=== PATIENT | female | born 1970 | race Caucasian/White ===

== ENCOUNTER 2019-07-05 08:58 | Outpatient (CLI) | payer OTHER ==
--- NOTE | 2019-07-05 09:53 | CT ---
CT OF THE CHEST, ABDOMEN AND PELVIS WITH IV CONTRAST INDICATION: Recent diagnosis of left-sided breast cancer COMPARISON: None FINDINGS: CHEST: Lungs: No suspicious pulmonary nodule or pleural effusion is identified. Pleural space: No effusion. Mediastinum: No pathologically enlarged lymph nodes are evident. Axilla: There is an enlarged left axillary lymph node with an adjacent biopsy clip measuring 1.5 cm. There is a 6 mm left subpectoral lymph node on image 19 of series 2. No additional enlarged lymph nodes are seen within the left axilla or left supraclavicular regions. The right axilla is within nor mal limits. There is a surgical clip within the lateral aspect of the left breast. ABDOMEN: Liver: There are numerous hypodense liver lesions involving the liver suspicious for cysts. One of th e largest is seen within the posterior right hepatic lobe measuring 3.9 cm. There is a bilobed cyst involving the inferior aspect of the right hepatic lobe on image 68 of series 2 measuring 5.2 cm. No suspicious hepatic lesion is identified. Gallbladder: Normal appearing. Pancreas: Normal. Adrenal glands: Normal. Spleen: Normal. Kidneys and ureters: There is a 2 mm nonobstructing calculus within the midpole of the left kidney. T here is a 2 mm calculus within superior pole the right kidney. There is a 2 mm calculus within the midpole of the right kidney. There is a 1 to 2 mm calculus within the inferior pole of the right kidn ey. No hydronephrosis is evident. Vasculature: Normal. Lymph nodes:No lymphadenopathy. Free fluid in abdomen:No free fluid is evident. PELVIS: Small and large bowel: Normal Appendix:Normal Bladder: Normal. Rectal and perirectal soft tissues:Normal. Reproductive structures: Normal. Free fluid in pelvis: No free fluid is evident. Lymphadenopathy pelvis: No lymphadenopathy is evident. Osseous structures: No acute osseous abnormality. No destructive osteolytic or osteoblastic lesion i s identified. There is scattered degenerative and osteoarthritic changes. Soft tissues:There is skin thickening involving the left breast. IMPRESSION: 1. Patient's known left breast cancer is not well depicted on the current CT examination. There is a biopsy clip within the lateral aspect the left breast. There is skin thickening involving the left breast which may reflect sequela of therapy or inflammatory breast cancer. There are enlarged lymph n odes within the left axilla suspicious for malignant lymphadenopathy. 2. No evidence to suggest distant metastatic disease within the lungs, abdomen, pelvis and osseous st ructures. 3. Numerous hepatic cysts. 4. Bilateral nephrolithiasis
--- NOTE | 2019-07-05 13:22 | NM ---
EXAM: NM Bone Scan STANDARD PROVIDED CLINICAL HISTORY: Malignant neoplasm of upper inner quadrant of left female breast. COMPARISON: None FINDINGS: Anterior and posterior whole body images are obtained. There is increased uptake in the shoulders pita aterally in a degenerative pattern. A few minimal areas of asymmetric uptake are seen in the thoracic and lower lumbar spine also likely on a degenerative basis. There is a focus of increased ac tivity seen within the upper sternum, but this is likely at the sternomanubrial junction and may be related to degenerative change. No definite abnormal areas of increased uptake or radiotracer seen th roughout the axial or appendicular skeleton to suggest scintigraphic evidence of metastatic disease. Expected activity is seen in the kidneys bilaterally as well as in the urinary bladder. IMPRESSION: Scattered degenerative changes without findings to suggest osseous metastatic disease.
[2019-07-05] MEDS ORDERED: Iopamidol 370 76% 100 ML VIAL ONE (15:14)
== END 2019-07-05 08:59 | disposition home or self-care (01) ==
LOC: CT 08:58
PROVIDERS: ATTEND Internal Medicine Hematology & Oncology
DX: C50.212 Malignant neoplasm of upper-inner quadrant of left female breast (principal); N20.0 Calculus of kidney; K76.89 Other specified diseases of liver
CPT/HCPCS: 71260; 74177; 78306; A9503; Q9967

== ENCOUNTER 2019-07-06 06:08 | Day surgery (SDC) | payer OTHER ==
[2019-07-05 10:31] VITALS: BMI 28.3
[2019-07-06] MEDS ORDERED: Lidocaine 2% Jelly 5 ML TUBE ONE (06:46)
[2019-07-06] MEDS ORDERED: Lidocaine 2% PF 5 ML VIAL ONE (06:46)
[2019-07-06] MEDS ORDERED: Bupivacaine 0.25% HCL 30 ML VIAL ONE (06:50)
[2019-07-06] MEDS ORDERED: Lidocaine 0.5%/Epinephrine 1:200,000 50 ml Vial ONE (06:50)
[2019-07-06] MEDS ORDERED: Fentanyl 100 MCG/2 ML VIAL ONE (06:51)
[2019-07-06] MEDS ORDERED: Propofol 500 MG/50 ML VIAL ONE (06:57)
[2019-07-06] MEDS ORDERED: Midazolam HCl 2 mg/2 ml Vial ONE (07:26)
[2019-07-06] MEDS ORDERED: Ketorolac Tromethamine 30 MG/ML VIAL ONE (08:31)
[2019-07-06] MEDS ORDERED: Morphine 2 MG/ML SYRINGE ONE (09:03)
--- NOTE | 2019-07-06 10:17 | RAD ---
CHEST 1 VIEW: Date: 07/06/2019 HISTORY: Postop MediPort placement. COMPARISON: Adult Daycare Coordinator film from chest, abdomen, and pelvis CT scan dated 07/05/2019. FINDINGS: Right central line and injection port has been placed. No pneumothorax or pleural effusion. Heart siz e is normal. IMPRESSION: Right central line and injection port without pneumothorax or pleural effusion. POS: OFF
[2019-07-06] MEDS ORDERED: PROPOFOL 200 MG/20 ML VIAL ONE (11:55)
--- NOTE | 2019-07-07 12:54 | OP ---
DATE OF PROCEDURE: 07/06/2019 PREOPERATIVE DIAGNOSIS: Left breast cancer, locally advanced with metastatic disease to the left axilla. POSTOPERATIVE DIAGNOSIS: Left breast cancer, locally advanced with metastatic disease to the left axilla. PROCEDURES PERFORMED: Right IJ central line with subcutaneous port (MediPort). ANESTHESIA: General. ESTIMATED BLOOD LOSS: Minimal. COMPLICATIONS: None. FINDINGS: Tip of the catheter at the atriocaval junction. DESCRIPTION OF PROCEDURE: The patient was taken to the operating room and laid supine on the operating room table. After general anesthetic was obtained, bilateral neck and chest were prepped and draped in a sterile fashion. Local anesthetic infiltrated over the right internal jugular vein. Internal jugular vein was cannulated using a 22-gauge finder needle followed by a Seldinger needle. Wire was passed into the superior vena cava under fluoro guidance. A small dominique was made at the wire entrance site. A separate 3 cm incision was made in the right upper chest. Subcutaneous pocket was made below the lower incision. Tubing for the MediPort tunneled from the inferior to the superior incision. An introducer sheath was placed over the wire into the superior vena cava under fluoro guidance. The dilator and wire were removed. The end of the catheter was sewed into the sheath. The sheath was peeled away. The tip of the catheter was at the atriocaval junction. MediPort tubing was cut to fit the MediPort at the lower incision, connected to the MediPort. The MediPort is sewn to the chest wall in the subcutaneous pocket using Prolene. MediPort flushed and landen blood without difficulty, it was flushed with a heparin flush. The wounds were irrigated and closed using 3-0 Vicryl, 4-0 Monocryl, and Dermabond. The patient was sent to Recovery in stable condition. All instrument counts, needle counts, and lap counts were correct. Job ID: [id number]
== END 2019-07-06 10:35 | disposition home or self-care (01) ==
LOC: SDC 06:08
PROVIDERS: ATTEND Surgery
PROC: 02HV33Z Insertion of Infusion Device into Superior Vena Cava, Percutaneous Approach (ICD-10-PCS; principal; 2019-07-06)
DX: C50.412 Malignant neoplasm of upper-outer quadrant of left female breast (principal); C77.3 Secondary and unspecified malignant neoplasm of axilla and upper limb lymph nodes; I10 Essential (primary) hypertension; Z17.0 Estrogen receptor positive status [ER+]; Z79.899 Other long term (current) drug therapy
CPT/HCPCS: 71045; C1788; J0690; J1642; J1885; J2001; J2250; J2270; J2704; J3010; S0020

== ENCOUNTER 2019-10-26 06:20 | Outpatient (CLI) | payer OTHER ==
[2019-10-26 11:30] LABS: #Eosinphils 0.1 thou/uL (0.0-0.7); #Lymphocytes 1.2 thou/uL (1.20-3.40); #Monocytes 0.8 thou/uL (0.11-0.59); %Basophils 0.5 % (0.0-1.0); %Eosinophils 1.2 % (0.0-10.0); %Monocytes 13.5 % (0.0-10.0); %Neutrophils 65.9 % (42.0-75.0); Hemoglobin 10.5 g/dL (12.0-16.0); Mean Corpuscular Hemoglobin 32.4 pg (27.0-31.0); Mean Platelet Volume 8.5 fL (7.4-10.4); Platelet Count 266 thou/uL (130-400); RBC Distribution Width 16.5 % (11.5-14.5); Red Blood Cell (RBC) Count 3.24 mill/uL (4.20-5.40); White Blood Cell (WBC) Count 6.1 thou/uL (4.8-10.8)
[2019-10-26 11:58] LABS: Anion Gap 13 mmol/L (10-20); BUN (Urea Nitrogen) 14 mg/dL (7.0-18.7); Calc. Creatinine Clearance 0 mL/min (70-130); Calcium 9.3 mg/dL (7.8-10.44); Carbon Dioxide 26 mmol/L (22-29); Chloride 108 mmol/L (98-107); Estimated GFR-MDRD Greater than 90; Glucose 90 mg/dL (70-105); Potassium 3.8 mmol/L (3.5-5.1); Sodium 143 mmol/L (136-145)
[2019-10-26 17:16] LABS: SARS-CoV-2 MS2 Positive; SARS-CoV-2 N Gene Negative; SARS-CoV-2 S Gene Negative; SARS-CoV-2 orf1ab Negative
== END 2019-10-26 06:21 | disposition home or self-care (01) ==
LOC: LABBT 06:20
PROVIDERS: ATTEND Surgery
DX: Z01.812 Encounter for preprocedural laboratory examination (principal); Z11.59 Encounter for screening for other viral diseases; C50.919 Malignant neoplasm of unspecified site of unspecified female breast
CPT/HCPCS: 80048; 85025; 87635; U0003

== ENCOUNTER 2019-10-31 09:30 | Observation (INO) | payer OTHER ==
[2019-10-26 10:09] VITALS: BMI 28.6
[2019-10-31] MEDS ORDERED: Ondansetron PF 4 MG/2 ML Vial ONE (09:51)
[2019-10-31] MEDS ORDERED: PHENYLEPHRINE-NS 100 MCG/ML 10 ML SYRINGE ONE (09:51)
[2019-10-31] MEDS ORDERED: Rocuronium Bromide 10 MG/ML (10ML VIAL) ONE (09:51)
[2019-10-31] MEDS ORDERED: PROPOFOL 200 MG/20 ML VIAL ONE (09:51)
[2019-10-31] MEDS ORDERED: Dexamethasone 20 MG/5 ML VIAL ONE (09:51)
[2019-10-31] MEDS ORDERED: Lidocaine 1% PF 5 ML VIAL ONE (09:51)
[2019-10-31] MEDS ORDERED: Methylene Blue 50 MG/10 ML AMPUL ONE (10:38)
[2019-10-31] MEDS ORDERED: Gentamicin 80 MG/2 ML VIAL ONE ×2 (10:38→15:55)
[2019-10-31] MEDS ORDERED: Bupivacaine 0.25% HCL 30 ML VIAL ONE (10:38)
[2019-10-31] MEDS ORDERED: EPINEPHrine 1 MG/ML AMP ONE (10:38)
[2019-10-31] MEDS ORDERED: Sodium Chloride 0.9% 10 ML ONE ×2 (11:55→15:55)
--- NOTE | 2019-10-31 13:34 | NM ---
Lymphoscintigraphy left breast HISTORY: Left breast cancer. FINDINGS: After explaining the procedure and answering all questions, the skin around the periareolar aspect left breast was cleansed. Sterile technique was used to carefully injected total volume of 1 cc liquid containing 360 uCi techn etium 99m filtered sulfur colloid in 4 equal aliquots into the skin at the 12:00, 3:00, 6:00, and 9:00 periareolar positions of the left breast. Injection sites were massaged by the patient and imaging performed. At 1 hour and then at 2 hours, a focus of increased radiotracer uptake is present at the superior lat eral aspect of the left breast. Skin overlying the lymph node was marked and patient was sent to day surgery in good condition. IMPRESSION : Technically successful lymphoscintigraphy left breast revealing axillary tail sentinel lymph node.
[2019-10-31] MEDS ORDERED: Heparin 5,000 UNITS/ML VIAL ONE (14:08)
[2019-10-31] MEDS ORDERED: Fentanyl 100 MCG/2 ML VIAL ONE ×3 (14:24→18:19)
[2019-10-31] MEDS ORDERED: Midazolam HCl 2 mg/2 ml Vial ONE (14:24)
[2019-10-31] MEDS ORDERED: Promethazine HCl 25 MG/ML VIAL IM PRN ×2 (17:14→19:19)
[2019-10-31] MEDS ORDERED: HYDROmorphone 2 MG/ML VIAL SLOW IVP PRN (17:14)
[2019-10-31] MEDS ORDERED: Meperidine HCl/PF 25 MG/ML VIAL SLOW IVP PRN (17:14)
[2019-10-31] MEDS ORDERED: Promethazine HCl 25 MG/ML VIAL SLOW IVP PRN (17:14)
[2019-10-31] MEDS ORDERED: Promethazine HCl 25 MG/ML VIAL ONE (18:09)
[2019-10-31] MEDS ORDERED: Fentanyl 100 MCG/2 ML VIAL SLOW IVP PRN ×2 (19:19)
[2019-10-31] MEDS ORDERED: hydrALAZINE 20 MG/ML VIAL SLOW IVP PRN (19:19)
[2019-10-31] MEDS ORDERED: Dextrose 5% in Water 1,000 ML IV PRN (19:19)
[2019-10-31] MEDS ORDERED: HYDROcodone/Acetaminophen 7.5/325 mg Tablet PO PRN (19:19)
[2019-10-31] MEDS ORDERED: Dextrose 50% Abboject 50 ML SYRINGE SLOW IVP PRN (19:19)
[2019-10-31] MEDS ORDERED: Ondansetron PF 4 MG/2 ML Vial IVP PRN (19:19)
[2019-10-31] MEDS: Sodium Chloride 0.9% 1,000 ML IV SCH (20:50)
[2019-10-31] MEDS: Famotidine 20 MG TAB PO SCH (20:50)
[2019-10-31] MEDS: HYDROcodone/Acetaminophen 7.5/325 mg Tablet PO PRN (21:10)
[2019-10-31] MEDS: Fluticasone Propionate Nasal Spray 16 gm Bottle NASAL SCH (22:26)
--- NOTE | 2019-11-01 01:29 | OP ---
DATE OF PROCEDURE: 10/31/2019 PREOPERATIVE DIAGNOSIS: Left breast cancer. POSTOPERATIVE DIAGNOSIS: Left breast cancer. PROCEDURE PERFORMED: 1. Placement of AlloDerm for breast reconstruction (16 x 20) (43528). 2. Placement of left tissue beam racker for immediate breast reconstruction . DESCRIPTION OF PROCEDURE: Following induction of adequate anesthesia, the patient was prepped and draped in the usual sterile fashion in supine position. The patient underwent a left mastectomy with left axillary node dissection. Please see Dr. Collier's note for further details. At the conclusion of his procedure, the pocket was copiously irrigated and inspected for meticulous hemostasis. It was irrigated with hypochlorite solution followed by dilute antibiotic solution and dilute antibiotic and Betadine solution. Antibiotic beads were placed. A prepectoral reconstruction was elected. Artoura smooth tissue beam racker was placed into position and sutured with 2-0 Prolene suture at its inferior and medial suture tabs. AlloDerm was placed anterior to the tissue beam racker and secured with a series of 2-0 PDS sutures around the beam racker, as well as at the inframammary crease. The pocket was inspected for meticulous hemostasis prior to closure. Closure was performed along the inframammary crease incision using 3-0 PDS suture and 3-0 Monocryl suture after two #10 drains were placed, one in the axilla and one at the inframammary crease. Job ID: [id number] MTDD
[2019-11-01] MEDS: HYDROcodone/Acetaminophen 7.5/325 mg Tablet PO PRN ×2 (06:46→13:19)
[2019-11-01] MEDS: Famotidine 20 MG TAB PO SCH ×2 (08:32→20:34)
[2019-11-01] MEDS: Fluticasone Propionate Nasal Spray 16 gm Bottle NASAL SCH ×4 (08:32→20:36)
[2019-11-01] MEDS: Sodium Chloride 0.9% 1,000 ML IV SCH (08:38)
--- NOTE | 2019-11-01 10:31 | PDOC.GSPN ---
Surgery Progress Note: Subj - Subjective Narrative: c/o pain, not ambulating Surgery Progress Note: Obj - Vital signs Vital signs: Vital Signs - Most Recent Temp Pulse Resp BP Pulse Ox 97.9 F 54 L 18 117/67 96 11/01/19 07:30 11/01/19 07:30 11/01/19 07:30 11/01/19 07:30 11/01/19 08:00 - Physical Exam General: no distress Wound: dressing clean,dry,intact Surgery Progress Note: A/P - Problem (1) Breast cancer Current Visit: Yes Status: Acute - Plan Plan: POD 1 -Needs to ambulate more. -home tomorrow
[2019-11-01] MEDS ORDERED: Cephalexin 250 MG CAP PO SCH (10:45)
--- NOTE | 2019-11-01 13:57 | OP ---
DATE OF PROCEDURE: 10/31/2019 PREOPERATIVE DIAGNOSIS: Locally invasive left breast cancer with clinical stage III disease, (preoperatively treated with neoadjuvant chemotherapy). POSTOPERATIVE DIAGNOSIS: Locally invasive left breast cancer with clinical stage III disease, (preoperatively treated with neoadjuvant chemotherapy). PROCEDURES PERFORMED: 1. Left nipple-sparing mastectomy. 2. Left axillary dissection. 3. Removal of tunneled central line with subcutaneous port. ANESTHESIA: General. ESTIMATED BLOOD LOSS: Minimal. COMPLICATIONS: None. FINDINGS: No significant sentinel node, Neoprobe uptake in the left axilla. Decision is made to perform level 1 and 2 axillary dissection. DESCRIPTION OF PROCEDURE: The patient was taken to the operating room and laid supine on the operating room table. After general anesthetic was obtained, the methylene blue dye was infiltrated in the breast tissue just to the right of the nipple, massaged for 5 minutes. The left chest, breast, axilla, and arm were prepped and draped in a sterile fashion. The right chest in the area of previous MediPort was prepped and draped in a sterile fashion too. An incision was made just above the inferior mammary crease. Flaps were raised posterior to the breast along the pectoralis fascia. The fascia was removed with the breast to the level of sternum medially, clavicle superiorly, latissimus dorsi laterally. Flaps were raised then in the subcutaneous space through the nipple in the area where the nipple was brought down. A Prolene was used to anju on the breast where the nipple corresponded to. The breast was removed after taking the tail out. It was marked with 2 short superior, 1 long lateral, sent to Path for final diagnosis. An incision was made high in the left axilla in order to preserve the blood supply to the long flaps. Using the Neoprobe, there was no increased uptake obtained in the left axilla, so decision was made to perform level 1 and 2 axillary dissection. The clavipectoral fascia was entered. The axillary vein was found, the unnamed vein was taken at its takeoff from the axillary vein. Dissection was taken down to thoracodorsal nerve, which was excluded from the dissection. The long thoracic was found as well medially and excluded from the dissection. All level 1 and 2 axillary fatty nic tissue was removed and sent to Path for final diagnosis. There was 1 scarred area of a few lymph nodes, that was consistent with previous biopsy positive lymph node. A #10 drain was brought out and sewn in place using silk. This incision was closed using 3-0 Vicryl, 4-0 Monocryl, and Dermabond. The procedure was turned over to Dr. Cedeno for placement of a tissue facility environmental technician. The previous incision over the right MediPort was opened and the MediPort was removed. This wound was irrigated and closed using 3-0 Vicryl, 4-0 Monocryl, and Dermabond. The patient was ultimately returned to Recovery in stable condition. All instrument counts, needle counts, and lap counts were correct. Job ID: [id number]
[2019-11-01] MEDS: Cephalexin 250 MG CAP PO SCH ×2 (18:00→23:28)
[2019-11-01] MEDS: Naproxen 500 MG TAB PO SCH (20:33)
[2019-11-02] MEDS: Cephalexin 250 MG CAP PO SCH ×2 (04:56→12:00)
[2019-11-02] MEDS: HYDROcodone/Acetaminophen 7.5/325 mg Tablet PO PRN ×2 (05:00→12:01)
[2019-11-02] MEDS: Naproxen 500 MG TAB PO SCH (08:11)
[2019-11-02] MEDS: Famotidine 20 MG TAB PO SCH (08:11)
[2019-11-02] MEDS: Fluticasone Propionate Nasal Spray 16 gm Bottle NASAL SCH ×2 (08:12)
[2019-11-02 12:14] VITALS: TEMP 97.9
[2019-11-02 15:30] VITALS: BP 117/72
[2019-11-02] MEDS ORDERED: Gabapentin 300 MG CAP PO SCH (18:00)
--- NOTE | 2019-11-03 05:22 | DIS ---
DATE OF ADMISSION: 10/31/2019 DATE OF DISCHARGE: 11/02/2019 ADMITTING DIAGNOSIS: Left breast cancer. DISCHARGE DIAGNOSIS: Left breast cancer. PROCEDURES PERFORMED: Simple mastectomy, axillary dissection and reconstruction by Amira/Pao. CONDITION ON DISCHARGE: Improved. STAFF: Jermaine Collier MD HOSPITAL COURSE: On postop day 2, the patient is doing well. Her pain is controlled. Prescriptions for hydrocodone and Zofran sent over to [facility] in [place]. She was instructed on drain care and reach to recovery exercises. She will follow up with Dr. Cedeno on of this week. She will follow up with me on Thursday of next week. Job ID: [id number]
== END 2019-11-02 16:05 | disposition home or self-care (01) ==
LOC: SDC 09:30 → SURG B 16:35 → SDC 19:20
PROVIDERS: ADMIT Surgery; ATTEND Surgery
PROC: 0HBU0ZZ Excision of Left Breast, Open Approach (ICD-10-PCS; principal; 2019-10-31)
PROC: 07T60ZZ Resection of Left Axillary Lymphatic, Open Approach (ICD-10-PCS; 2019-10-31)
PROC: 0JPT0WZ Removal of Totally Implantable Vascular Access Device from Trunk Subcutaneous Tissue and Fascia, Open Approach (ICD-10-PCS; 2019-10-31)
PROC: 0HHU0NZ Insertion of Tissue Expander into Left Breast, Open Approach (ICD-10-PCS; 2019-10-31)
PROC: 0HUU0KZ Supplement Left Breast with Nonautologous Tissue Substitute, Open Approach (ICD-10-PCS; 2019-10-31)
DX: C50.412 Malignant neoplasm of upper-outer quadrant of left female breast (principal); I10 Essential (primary) hypertension; Z17.0 Estrogen receptor positive status [ER+]; Z79.51 Long term (current) use of inhaled steroids
CPT/HCPCS: 78195; 88307; 88309; 88342; 96361; 96374; A9541; C1713; G0378; J0171; J0690; J1100; J1580; J1644; J2001; J2250; J2405; J2550; J2704; J3010; J3370; Q4116; Q9968; S0020

== ENCOUNTER 2020-03-14 07:37 | Outpatient (CLI) | payer OTHER ==
[2020-03-15 11:52] LABS: SARS-CoV-2 MS2 Positive; SARS-CoV-2 N Gene Negative; SARS-CoV-2 S Gene Negative; SARS-CoV-2 by NAA Not Detected (NotDetected); SARS-CoV-2 orf1ab Negative
== END 2020-03-14 07:38 | disposition home or self-care (01) ==
LOC: LABBT 07:37
PROVIDERS: ATTEND Plastic Surgery
DX: Z20.828 Contact with and (suspected) exposure to other viral communicable diseases (principal); Z85.3 Personal history of malignant neoplasm of breast
CPT/HCPCS: 87635; U0003

== ENCOUNTER 2020-03-19 07:32 | Day surgery (SDC) | payer OTHER ==
[2020-03-14 11:04] VITALS: BMI 27.0
[2020-03-19] MEDS ORDERED: Heparin 5,000 UNITS/ML VIAL ONE (07:47)
[2020-03-19] MEDS ORDERED: EPINEPHrine 1 MG/ML AMP ONE (09:39)
[2020-03-19] MEDS ORDERED: Sodium Chloride 0.9% 20 ML ONE (09:39)
[2020-03-19] MEDS ORDERED: Gentamicin 80 MG/2 ML VIAL ONE (09:39)
[2020-03-19] MEDS ORDERED: Bupivacaine 0.25% HCL 30 ML VIAL ONE (09:39)
[2020-03-19] MEDS ORDERED: EPHEDRINE 25 MG/5 ML SYRINGE ONE (10:22)
[2020-03-19] MEDS ORDERED: Lidocaine 1% PF 5 ML VIAL ONE (10:22)
[2020-03-19] MEDS ORDERED: Ondansetron PF 4 MG/2 ML Vial ONE (10:22)
[2020-03-19] MEDS ORDERED: PHENYLEPHRINE-NS 100 MCG/ML 10 ML SYRINGE ONE (10:22)
[2020-03-19] MEDS ORDERED: Dexamethasone 20 MG/5 ML VIAL ONE (10:22)
[2020-03-19] MEDS ORDERED: PROPOFOL 200 MG/20 ML VIAL ONE (10:22)
[2020-03-19] MEDS ORDERED: Midazolam HCl 2 mg/2 ml Vial ONE (10:26)
[2020-03-19] MEDS ORDERED: Fentanyl 100 MCG/2 ML VIAL ONE ×2 (10:36→12:56)
[2020-03-19] MEDS ORDERED: HYDROcodone/Acetaminophen 5/325 mg Tablet ONE (14:04)
--- NOTE | 2020-03-20 12:50 | OP ---
DATE OF PROCEDURE: 03/19/2020 PROCEDURES PERFORMED: 1. Exchange of left tissue bricklayer helper for permanent breast prosthesis including capsular work (39349.LT). 2. Fat grafting of the left breast (30 mL) (1.769). OPERATIVE FINDINGS: Left breast implant [place] reference [id number], serial #[id number]. 270 mL smooth round implant. DESCRIPTION OF PROCEDURE: Following induction of adequate anesthesia, the patient was prepped and draped in the usual sterile fashion in the supine position. The existing left inframammary crease scar was incised. Dissection was carried sharply down through the subcutaneous tissue to the underlying capsule, which was incised. The pocket was then opened superiorly and medially at its chest wall reflection point. The pocket was copiously irrigated with dilute antibiotic solution followed by dilute Betadine solution prior to placement of the above implant. The pocket was inspected for meticulous hemostasis prior to closure with 3-0 PDS suture and 3-0 Monocryl suture. Attention was turned to the fat grafting. The abdomen was infiltrated with tumescent fluid. After this had had adequate time to take effect, traditional liposuction was done capturing the fat and mucus trap. This was transferred to syringes where it was allowed to separate before it was decanted. It was then injected through stab incisions using a micro droplet technique. The patient tolerated the procedure well. Job ID: [id number]
== END 2020-03-19 14:56 | disposition home or self-care (01) ==
LOC: SDC 07:32
PROVIDERS: ATTEND Plastic Surgery
PROC: 0HRU0JZ Replacement of Left Breast with Synthetic Substitute, Open Approach (ICD-10-PCS; principal; 2020-03-19)
PROC: 0HPU0NZ Removal of Tissue Expander from Left Breast, Open Approach (ICD-10-PCS; principal; 2020-03-19)
PROC: 0JR607Z Replacement of Chest Subcutaneous Tissue and Fascia with Autologous Tissue Substitute, Open Approach (ICD-10-PCS; principal; 2020-03-19)
DX: C50.912 Malignant neoplasm of unspecified site of left female breast (principal)
CPT/HCPCS: C1789; J0171; J0690; J1100; J1580; J1644; J2250; J2405; J2704; J3010; J3370; J3490; S0020

== ENCOUNTER 2022-05-07 12:17 | Outpatient (CLI) | payer BC ==
[2022-05-07 13:15] LABS: Hemoglobin 12.3 g/dL (12.0-15.5); Mean Corpuscular HGB CONC 34.6 g/dL (32.0-36.0); Mean Corpuscular Hemoglobin 32.7 pg (27.0-33.0); Mean Corpuscular Volume 94.4 fl (81.6-98.3); Mean Platelet Volume 11.4 fl (7.4-10.4); Platelet Count 193 10x3/uL (150-450); RBC Distribution Width 12.8 % (11.5-14.5); Red Blood Cell (RBC) Count 3.76 10x6/uL (3.90-5.03); White Blood Cell (WBC) Count 6.4 10x3/uL (3.5-10.5)
[2022-05-07 13:26] LABS: PTT 23.2 sec (22.0-33.0); Prothrombin Time 10.7 sec (9.5-12.1)
[2022-05-07 13:35] LABS: Anion Gap 15 mmol/L (10-20); BUN (Urea Nitrogen) 18 mg/dL (9.8-20.1); Calc. Creatinine Clearance 0 mL/min (70-130); Calcium 9.6 mg/dL (7.8-10.44); Carbon Dioxide 23 mmol/L (22-29); Chloride 110 mmol/L (98-107); Estimated GFR 89; Glucose 86 mg/dL (70-105); Potassium 4.6 mmol/L (3.5-5.1); Sodium 143 mmol/L (136-145)
[2022-05-07 14:03] LABS: Platelet Count 169 thou/uL (130-400)
[2022-05-07 15:06] LABS: EPI 189 sec (67-192)
== END 2022-05-07 12:18 | disposition home or self-care (01) ==
LOC: LABBT 12:17
PROVIDERS: ATTEND Urology
DX: Z01.812 Encounter for preprocedural laboratory examination (principal); N20.0 Calculus of kidney
CPT/HCPCS: 80048; 85027; 85576; 85610; 85730; 87086

== ENCOUNTER 2022-05-12 06:08 | Day surgery (SDC) | payer BC ==
[2022-05-07 09:47] VITALS: BMI 27.9
[2022-05-12] MEDS ORDERED: fentaNYL PF 100 MCG/2 ML SYRINGE ONE (06:37)
[2022-05-12] MEDS ORDERED: Midazolam HCl 2 mg/2 ml Vial ONE (07:22)
[2022-05-12] MEDS ORDERED: PROPOFOL 200 MG/20 ML VIAL ONE (07:40)
[2022-05-12] MEDS ORDERED: Dexamethasone 20 MG/5 ML VIAL ONE (07:40)
[2022-05-12] MEDS ORDERED: ePHEDrine 50 MG/ML VIAL ONE (07:40)
[2022-05-12] MEDS ORDERED: Ondansetron PF 4 MG/2 ML Vial ONE ×2 (07:40→09:06)
== END 2022-05-12 10:21 | disposition home or self-care (01) ==
LOC: SDC 06:08
PROVIDERS: ATTEND Urology
PROC: 0TF4XZZ Fragmentation in Left Kidney Pelvis, External Approach (ICD-10-PCS; principal; 2022-05-12)
DX: N20.0 Calculus of kidney (principal); Z79.899 Other long term (current) drug therapy
CPT/HCPCS: 74018; J1100; J2250; J2405; J2704; J3490

== ENCOUNTER 2022-05-27 10:52 | Inpatient (IN) | payer BC ==
[2022-05-27 12:09] LABS: Anion Gap 15 mmol/L (10-20); BUN (Urea Nitrogen) 28 mg/dL (9.8-20.1); Calc. Creatinine Clearance 0 mL/min (70-130); Carbon Dioxide 24 mmol/L (22-29); Chloride 107 mmol/L (98-107); Sodium 142 mmol/L (136-145)
[2022-05-27 12:10] LABS: ALT (SGPT) 32 U/L (8-55); AST (SGOT) 68 U/L (5-34); Albumin 4.3 g/dL (3.5-5.0); Alkaline Phosphatase 140 U/L (40-110); Bilirubin, Total 3.7 mg/dL (0.2-1.2); Calcium 9.8 mg/dL (7.8-10.44); Estimated GFR 72; Globulin 2.4 g/dL (2.4-3.5); Glucose 87 mg/dL (70-105); Protein, Total 6.7 g/dL (6.0-8.3)
[2022-05-27 12:23] LABS: Band 12 % (5-11); Bite Cells SLIGHT = 2-5 cells (100X) (0-1/hpf); Eosinophils 2 % (0-10); Hemoglobin 8.5 g/dL (12.0-16.0); Lymphocytes 14 % (21-51); MDiff Complete? YES; Mean Corpuscular HGB CONC 35.1 g/dL (32.0-36.0); Mean Corpuscular Hemoglobin 33.6 pg (27.0-31.0); Mean Corpuscular Volume 95.9 fl (78.0-98.0); Mean Platelet Volume 11.5 fL (7.4-10.4); Metamyelocyte 3 % (0-0); Monocytes 7 % (0-10); Myelocyte 3 % (0-0); Neutrophil 59 % (42-75); Nucleated RBC 5 % (0); Platelet Count 108 10x3/uL (130-400); Platelet Morphology Comment Appears Decreased; Polychromasia MODERATE = 3-4 cells (100X) (0-2/hpf); Red Blood Cell (RBC) Count 2.53 mill/uL (4.20-5.40); Reflex for Review?? YES; Schistocytes MODERATE= 6-15 cells (100X) (0-1/hpf); White Blood Cell (WBC) Count 12.7 10x3/uL (4.8-10.8)
[2022-05-27 12:40] LABS: PTT 25.7 sec (22.9-36.1)
[2022-05-27] MEDS ORDERED: Iopamidol-370 76% 500 ML 1 ML ONE (13:36)
[2022-05-27 16:34] LABS: Troponin I 0.197 ng/mL (< 0.028)
[2022-05-27 17:35] VITALS: BMI 29.0
[2022-05-27 18:29] LABS: Iron 297 ug/dL (50-170); Iron Binding Capacity, Total 286 mcg/dL (265-497)
[2022-05-27 18:36] LABS: Troponin I 0.166 ng/mL (< 0.028)
[2022-05-27] MEDS ORDERED: Atorvastatin Calcium 20 MG TAB PO SCH (21:00)
[2022-05-27] MEDS: Fluticasone Propionate Nasal Spray 16 gm Bottle NASAL SCH (21:02)
[2022-05-27] MEDS: Famotidine 20 MG TAB PO SCH (21:02)
[2022-05-27] MEDS: diphenhydrAMINE 50 MG CAP PO SCH (21:40)
[2022-05-27] MEDS: Montelukast Sodium 10 mg Tablet PO SCH (21:40)
[2022-05-28 05:19] LABS: Hemoglobin 7.9 g/dL (12.0-16.0); Mean Corpuscular HGB CONC 34.7 g/dL (32.0-36.0); Mean Corpuscular Volume 97.9 fl (78.0-98.0); Mean Platelet Volume 11.1 fL (7.4-10.4); Platelet Count 101 10x3/uL (130-400); RBC Distribution Width 16.5 % (11.5-14.5); Red Blood Cell (RBC) Count 2.32 mill/uL (4.20-5.40); White Blood Cell (WBC) Count 11.4 10x3/uL (4.8-10.8)
[2022-05-28 05:21] LABS: ALT (SGPT) 29 U/L (8-55); AST (SGOT) 68 U/L (5-34); Albumin 3.9 g/dL (3.5-5.0); Alkaline Phosphatase 131 U/L (40-110); Anion Gap 15 mmol/L (10-20); BUN (Urea Nitrogen) 28 mg/dL (9.8-20.1); Bilirubin, Total 3.3 mg/dL (0.2-1.2); Calc. Creatinine Clearance 86 mL/min (70-130); Calcium 9.6 mg/dL (7.8-10.44); Carbon Dioxide 22 mmol/L (22-29); Chloride 108 mmol/L (98-107); Estimated GFR 71; Globulin 2.3 g/dL (2.4-3.5); Glucose 96 mg/dL (70-105); Potassium 4.2 mmol/L (3.5-5.1); Protein, Total 6.2 g/dL (6.0-8.3); Sodium 141 mmol/L (136-145)
[2022-05-28 05:56] LABS: Anisocytosis SLIGHT = 6-15 cells (100X) (0-5/hpf); Band 9 % (5-11); Lymphocytes 28 % (21-51); MDiff Complete? YES; Metamyelocyte 3 % (0-0); Monocytes 3 % (0-10); Neutrophil 57 % (42-75); Nucleated RBC 2 % (0); Platelet Morphology Comment Appears Decreased
[2022-05-28] MEDS: Fluticasone Propionate Nasal Spray 16 gm Bottle NASAL SCH ×2 (08:26→19:55)
[2022-05-28] MEDS: Aspirin 81 mg Enteric Coated Tablet PO SCH (08:26)
[2022-05-28] MEDS: Citalopram 10 MG TAB PO SCH (08:26)
[2022-05-28] MEDS: Famotidine 20 MG TAB PO SCH ×2 (08:27→19:55)
[2022-05-28] MEDS: Letrozole 2.5 MG TAB PO SCH (08:32)
[2022-05-28] MEDS ORDERED: Furosemide 20 MG/2 ML VIAL SLOW IVP SCH (09:00)
[2022-05-28] MEDS ORDERED: Atorvastatin Calcium 20 MG TAB PO SCH (09:00)
[2022-05-28 13:19] LABS: Fluid, pH - Pleural Fld 7.47 (7.60 - 7.66)
[2022-05-28] MEDS: Acetaminophen 325 MG TAB PO PRN ×2 (13:47→19:55)
[2022-05-28 14:09] LABS: Pleural Fluid, Protein 3.8 g/dL
[2022-05-28 14:42] LABS: Bilirubin, Direct 0.6 mg/dL (0.1-0.3); Bilirubin, Total 4.2 mg/dL (0.2-1.2)
[2022-05-28 14:43] LABS: RBC Count-Automated (BF) 205 /cu.mm; WBC/Nucleated-Auto (BF) 637 /cu.mm
[2022-05-28] MEDS ORDERED: HYDROcodone/Acetaminophen 5/325 mg Tablet PO SCH (14:45)
[2022-05-28 14:48] LABS: BF Color Yellow; Body Fluid Source Pleural Fluid; Clarity Hazy (Clear); Tube # EDTA
[2022-05-28] MEDS ORDERED: Lidocaine 5% Patch TD SCH (15:00)
[2022-05-28 15:11] LABS: BF Segmented Neutrophils 1 %; Lymphocytes 17 %
[2022-05-28 15:27] LABS: Cell Count Non Hematic 81 %
[2022-05-28 18:03] LABS: Reticulocyte Count 9.3 % (0.5-1.5)
[2022-05-28] MEDS: Montelukast Sodium 10 mg Tablet PO SCH (19:55)
[2022-05-28] MEDS: diphenhydrAMINE 50 MG CAP PO SCH (19:55)
[2022-05-28] MEDS: HYDROcodone/Acetaminophen 5/325 mg Tablet PO PRN (20:36)
[2022-05-29] MEDS ORDERED: Transdermal Patch Removal TOP SCH (03:00)
[2022-05-29 06:07] LABS: Hemoglobin 6.9 g/dL (12.0-16.0); Mean Corpuscular HGB CONC 35.2 g/dL (32.0-36.0); Mean Corpuscular Hemoglobin 34.9 pg (27.0-31.0); Mean Corpuscular Volume 99.1 fl (78.0-98.0); Mean Platelet Volume 11.6 fL (7.4-10.4); Platelet Count 96 10x3/uL (130-400); RBC Distribution Width 17.6 % (11.5-14.5); Red Blood Cell (RBC) Count 1.99 mill/uL (4.20-5.40); White Blood Cell (WBC) Count 10.8 10x3/uL (4.8-10.8)
[2022-05-29 06:18] LABS: Anion Gap 14 mmol/L (10-20); BUN (Urea Nitrogen) 32 mg/dL (9.8-20.1); Calc. Creatinine Clearance 85 mL/min (70-130); Calcium 9.7 mg/dL (7.8-10.44); Carbon Dioxide 23 mmol/L (22-29); Chloride 105 mmol/L (98-107); Estimated GFR 70; Glucose 93 mg/dL (70-105); Potassium 4.1 mmol/L (3.5-5.1); Sodium 138 mmol/L (136-145)
[2022-05-29] MEDS ORDERED: Lorazepam 2 MG/ML VIAL SLOW IVP PRN (08:19)
[2022-05-29] MEDS: Famotidine 20 MG TAB PO SCH ×2 (09:53→21:30)
[2022-05-29] MEDS: Citalopram 10 MG TAB PO SCH (09:53)
[2022-05-29] MEDS: Aspirin 81 mg Enteric Coated Tablet PO SCH (09:53)
[2022-05-29] MEDS: Fluticasone Propionate Nasal Spray 16 gm Bottle NASAL SCH ×2 (09:53→21:29)
[2022-05-29] MEDS: Letrozole 2.5 MG TAB PO SCH (09:53)
[2022-05-29] MEDS ORDERED: Midazolam HCl 2 mg/2 ml Vial ONE (10:52)
[2022-05-29] MEDS ORDERED: FENTANYL 50 MCG/ML 1 ML VIAL ONE (10:52)
[2022-05-29 11:20] LABS: INR-International Normal Ratio 1.1; PTT 28.6 sec (22.9-36.1); Prothrombin Time 15.1 sec (12.0-14.7)
[2022-05-29 11:22] LABS: Fibrinogen 390 mg/dL (253-463)
[2022-05-29] MEDS ORDERED: Sodium Bicarbonate 2.5 MEQ/5 ML VIAL ONE (11:26)
[2022-05-29 11:31] LABS: D-Dimer Test 13.87 *mcg/mL (0.27-0.43)
[2022-05-29 12:28] LABS: Platelet Count 90 10x3/uL (130-400)
[2022-05-29] MEDS ORDERED: Iopamidol-370 76% 500 ML 1 ML ONE (15:13)
[2022-05-29] MEDS ORDERED: predniSONE 20 MG TAB PO SCH (15:30)
[2022-05-29] MEDS ORDERED: Ondansetron PF 4 MG/2 ML Vial IVP SCH (18:45)
[2022-05-29 21:27] LABS: Hemoglobin 8.9 g/dL (12.0-16.0)
[2022-05-29] MEDS: diphenhydrAMINE 50 MG CAP PO SCH (21:29)
[2022-05-29] MEDS: Montelukast Sodium 10 mg Tablet PO SCH (21:30)
[2022-05-29] MEDS: HYDROcodone/Acetaminophen 5/325 mg Tablet PO PRN (21:30)
[2022-05-29] MEDS: Atorvastatin Calcium 20 MG TAB PO SCH (21:30)
[2022-05-30 06:11] LABS: Hemoglobin 8.1 g/dL (12.0-16.0); Mean Corpuscular HGB CONC 35.6 g/dL (32.0-36.0); Mean Corpuscular Volume 95.7 fl (78.0-98.0); Mean Platelet Volume 11.5 fL (7.4-10.4); Platelet Count 83 10x3/uL (130-400); Red Blood Cell (RBC) Count 2.39 mill/uL (4.20-5.40); White Blood Cell (WBC) Count 14.5 10x3/uL (4.8-10.8)
[2022-05-30 06:20] LABS: Reticulocyte Count 9.2 % (0.5-1.5)
[2022-05-30] MEDS ORDERED: Ondansetron PF 4 MG/2 ML Vial IVP PRN (08:52)
[2022-05-30] MEDS: Folic Acid 1 MG TAB PO SCH (08:53)
[2022-05-30] MEDS: Aspirin 81 mg Enteric Coated Tablet PO SCH (08:53)
[2022-05-30] MEDS: Citalopram 10 MG TAB PO SCH (08:54)
[2022-05-30] MEDS: predniSONE 20 MG TAB PO SCH (08:54)
[2022-05-30] MEDS: Fluticasone Propionate Nasal Spray 16 gm Bottle NASAL SCH ×2 (08:55→21:08)
[2022-05-30] MEDS: Letrozole 2.5 MG TAB PO SCH (08:55)
[2022-05-30] MEDS: Famotidine 20 MG TAB PO SCH ×2 (08:55→21:47)
[2022-05-30 10:14] LABS: Reference Lab Name LABCORP
[2022-05-30 10:15] LABS: Ref Lab Test Ordered ADAMTS13 ACT
[2022-05-30] MEDS ORDERED: Melatonin 3 MG TAB PO PRN (11:47)
[2022-05-30] MEDS ORDERED: ALPRAZolam 0.25 MG TAB PO PRN (14:57)
[2022-05-30] MEDS: Atorvastatin Calcium 20 MG TAB PO SCH (21:08)
[2022-05-30] MEDS: diphenhydrAMINE 50 MG CAP PO SCH (21:08)
[2022-05-30] MEDS: Montelukast Sodium 10 mg Tablet PO SCH (21:08)
[2022-05-31 05:23] LABS: Hemoglobin 6.4 g/dL (12.0-16.0); Mean Corpuscular HGB CONC 34.9 g/dL (32.0-36.0); Mean Corpuscular Hemoglobin 33.6 pg (27.0-31.0); Mean Corpuscular Volume 96.3 fl (78.0-98.0); Mean Platelet Volume 10.6 fL (7.4-10.4); Platelet Count 85 10x3/uL (130-400); RBC Distribution Width 22.5 % (11.5-14.5); Red Blood Cell (RBC) Count 1.91 mill/uL (4.20-5.40); White Blood Cell (WBC) Count 16.2 10x3/uL (4.8-10.8)
[2022-05-31 05:24] LABS: Reticulocyte Count 11.7 % (0.5-1.5)
[2022-05-31 06:46] LABS: Hemoglobin 6.7 g/dL (12.0-16.0); Mean Corpuscular HGB CONC 34.5 g/dL (32.0-36.0); Mean Corpuscular Hemoglobin 33.4 pg (27.0-31.0); Mean Corpuscular Volume 96.9 fl (78.0-98.0); Platelet Count 90 10x3/uL (130-400); RBC Distribution Width 23.2 % (11.5-14.5); White Blood Cell (WBC) Count 16.7 10x3/uL (4.8-10.8)
[2022-05-31 06:49] VITALS: TEMP 98
[2022-05-31 07:40] LABS: Anisocytosis MODERATE=16-30 cells (100X) (0-5/hpf); Band 16 % (5-11); Helmet Cells SLIGHT = 2-5 cells (100X) (0-1/hpf); Lymphocytes 15 % (21-51); MDiff Complete? YES; Metamyelocyte 1 % (0-0); Monocytes 10 % (0-10); Myelocyte 2 % (0-0); Neutrophil 51 % (42-75); Nucleated RBC 12 % (0); Platelet Morphology Comment Appears Decreased; Polychromasia MODERATE = 3-4 cells (100X) (0-2/hpf); Reactive Lymphocytes 5 % (0-10); Schistocytes SLIGHT = 2-5 cells (100X) (0-1/hpf); Tear Drops SLIGHT = 2-5 cells (100X) (0-1/hpf)
[2022-05-31] MEDS: Aspirin 81 mg Enteric Coated Tablet PO SCH (08:11)
[2022-05-31] MEDS: Famotidine 20 MG TAB PO SCH (08:11)
[2022-05-31] MEDS: Letrozole 2.5 MG TAB PO SCH (08:11)
[2022-05-31] MEDS: predniSONE 20 MG TAB PO SCH (08:11)
[2022-05-31] MEDS: Citalopram 10 MG TAB PO SCH (08:11)
[2022-05-31] MEDS: Folic Acid 1 MG TAB PO SCH (08:11)
[2022-05-31 08:54] LABS: Bacteria/HPF 1+ HPF (None Seen); Bilirubin Negative (Negative); Blood, Urine 3+ (Negative); Clarity Clear (Clear); Glucose, Urine (Dipstick) Normal (Negative); Ketone, Urine Negative (Negative); Leukocyte Negative Leu/uL (Negative); Nitrite Negative (Negative); Protein, Urine (Dipstick) 70 mg/dL (Neg-Trace); RBC/HPF 0-3 HPF (0-3); Squamous Epithelial 0-3 HPF (0-3); Urobilinogen Normal mg/dL (Less than 2); WBC/HPF 0-3 HPF (0-3)
[2022-05-31 10:08] VITALS: BP 131/79
[2022-05-31] MEDS: Fluticasone Propionate Nasal Spray 16 gm Bottle NASAL SCH (11:32)
[2022-05-31 13:38] LABS: Hemoglobin 9.1 g/dL (12.0-16.0)
[2022-05-31] MEDS ORDERED: SODIUM CHLORIDE 0.9% IVPB SCH (21:00)
[2022-05-31] MEDS ORDERED: ADMIXTURE FEE CHEMO IVPB SCH (21:00)
[2022-05-31] MEDS ORDERED: PACLITAXEL IVPB SCH (21:00)
[2022-06-04 15:13] LABS: Fungus Stain Final report (.)
== END 2022-05-31 16:05 | disposition short-term general hospital (02) | DRG 180 ==
LOC: ERS 10:52 → 2SW 17:26 → MSONC 05-28 19:36
PROVIDERS: ADMIT Internal Medicine; ATTEND Internal Medicine
PROC: 0W9B3ZX Drainage of Left Pleural Cavity, Percutaneous Approach, Diagnostic (ICD-10-PCS; principal; 2022-05-28)
PROC: 07DR3ZX Extraction of Iliac Bone Marrow, Percutaneous Approach, Diagnostic (ICD-10-PCS; 2022-05-29)
PROC: 30233N1 Transfusion of Nonautologous Red Blood Cells into Peripheral Vein, Percutaneous Approach (ICD-10-PCS; 2022-05-29)
DX: C78.2 Secondary malignant neoplasm of pleura (principal); I21.A1 Myocardial infarction type 2; J96.01 Acute respiratory failure with hypoxia; M31.10 Thrombotic microangiopathy, unspecified; C79.51 Secondary malignant neoplasm of bone; D61.818 Other pancytopenia; D59.4 Other nonautoimmune hemolytic anemias; J91.0 Malignant pleural effusion; Z20.822 Contact with and (suspected) exposure to COVID-19; Z96.89 Presence of other specified functional implants; E78.5 Hyperlipidemia, unspecified; I10 Essential (primary) hypertension; Z85.3 Personal history of malignant neoplasm of breast; Z92.21 Personal history of antineoplastic chemotherapy; Z92.3 Personal history of irradiation; Z90.12 Acquired absence of left breast and nipple; Z79.899 Other long term (current) drug therapy; Z90.710 Acquired absence of both cervix and uterus; Z90.89 Acquired absence of other organs
CPT/HCPCS: 36415; 36430; 38222; 71045; 71275; 74177; 76705; 77012; 78306; 80048; 80053; 81001; 82150; 82247; 82553; 82728; 82945; 83010; 83540; 83550; 83615; 83880; 83986; 84157; 84484; 85025; 85027; 85046; 85049; 85060; 85300; 85362; 85379; 85384; 85610; 85730; 86300; 86850; 86880; 86900; 86901; 87070; 87116; 87205; 87206; 88112; 88184; 88237; 88305; 88313; 88341; 88342; 89051; 93005; 93306; A9503; J2060; J2250; J2405; J3010; J7512; P9016; Q9967; U0003; U0005